=== PATIENT | female | born 1955 | race Hispanic/Latino ===

== ENCOUNTER 2017-10-07 16:09 | Outpatient (CLI) | payer OTHER | END 2017-10-07 16:10 | disposition home or self-care (01) | LOC: BICRAD 16:09 | PROVIDERS: ATTEND Physician Assistant | DX: M54.5 Low back pain (principal); M47.896 Other spondylosis, lumbar region | CPT/HCPCS: 72100 ==

== ENCOUNTER 2017-11-10 12:49 | Outpatient (CLI) | payer OTHER | END 2017-11-10 12:50 | disposition home or self-care (01) | LOC: BICMAMMO 12:49 | PROVIDERS: ATTEND Physician Assistant | DX: Z12.31 Encounter for screening mammogram for malignant neoplasm of breast (principal); R92.1 Mammographic calcification found on diagnostic imaging of breast | CPT/HCPCS: 77063; 77067 ==

== ENCOUNTER 2019-07-20 09:46 | Outpatient (CLI) | payer MEDICARE ==
--- NOTE | 2019-07-20 10:24 | MMO ---
Bilateral MAMMO Bilat Screen [facility]. CLINICAL HISTORY: Patient is 64 years old and is seen for screening. The patient has no family history of breast cancer. The patient has no personal history of cancer. VIEWS: The views performed were: bilateral craniocaudal with tomosynthesis and bilateral mediolateral oblique with tomosynthesis. FILMS COMPARED: The present examination has been compared to prior imaging studies performed at [facility] on 03/08/2012, 03/30/2012, 03/15/2016 and 11/10/2017. This study has been interpreted with the assistance of computer-aided detection. MAMMOGRAM FINDINGS: There are scattered fibroglandular densities. There are stable benign appearing calcifications seen in both breasts. There are also vascular calcifications. There are no suspicious masses, suspicious calcifications, or new areas of architectural distortion. IMPRESSION: THERE IS NO MAMMOGRAPHIC EVIDENCE OF MALIGNANCY. A ROUTINE FOLLOW-UP MAMMOGRAM IN 1 YEAR IS RECOMMENDED. THE RESULTS OF THIS EXAM WERE SENT TO THE PATIENT. ACR BI-RADS Category 2 - Benign finding MAMMOGRAPHY NOTE: 1. A negative mammogram report should not delay a biopsy if a dominant of clinically suspicious mass is present. 2. Approximately 10% to 15% of breast cancers are not detected by mammography. 3. Adenosis and dense breasts may obscure an underlying neoplasm. Reported by: JOHN OQUENDO MD Electonically Signed: [id number]
== END 2019-07-20 09:47 | disposition home or self-care (01) ==
LOC: BICMAMMO 09:46
PROVIDERS: ATTEND Physician Assistant
DX: Z12.31 Encounter for screening mammogram for malignant neoplasm of breast (principal)
CPT/HCPCS: 77063; 77067

== ENCOUNTER 2020-01-11 07:48 | Outpatient (CLI) | payer MEDICARE ==
--- NOTE | 2020-01-11 09:19 | CT ---
CT Abdomen Pelvis W Con: 01/11/2020 12:00 AM CLINICAL INFORMATION: Left upper quadrant abdominal pain COMPARISON: None. TECHNIQUE: Multiple contiguous axial images were obtained and a CT of the abdomen and pelvis with IV contrast. Oral contrast was administered. Coronal and sagittal reformats were performed. FINDINGS: Lower Chest: Calcified granuloma in the right middle lobe. Abdomen: Liver: within normal limits. Bile Ducts: Normal caliber. Gallbladder: No calcified gallstones. Normal caliber wall. Pancreas: within normal limits. Spleen: within normal limits. Adrenals: within normal limits. 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 There is a 1.5 cm cyst in the right kidney. Pelvis: Reproductive Organs: Status post hysterectomy. Ureters: within normal limits. Bladder: within normal limits. Peritoneum: No ascites or free air, no fluid collection. Bowel: Normal caliber. Normal appendix. Mesentery and Retroperitoneum: No enlarged mesenteric or retroperitoneal lymph nodes. Vessels: Normal. Abdominal Wall: within normal limits. Bones: Degenerative changes in the spine. IMPRESSION: 1. No evidence of acute intraabdominal or pelvic abnormality. 2. Right renal cyst
[2020-01-11] MEDS ORDERED: Iopamidol-370 76% 500 ML 1 ML ONE (11:58)
== END 2020-01-11 07:49 | disposition home or self-care (01) ==
LOC: BICCT 07:48
PROVIDERS: ATTEND Physician Assistant Medical
DX: R10.12 Left upper quadrant pain (principal); N28.1 Cyst of kidney, acquired
CPT/HCPCS: 74177; Q9967

== ENCOUNTER 2020-11-11 09:02 | Outpatient (CLI) | payer MEDICARE | END 2020-11-11 09:03 | disposition home or self-care (01) | LOC: TBSIIMAG 09:02 | PROVIDERS: ATTEND Neurological Surgery | DX: M51.16 Intervertebral disc disorders with radiculopathy, lumbar region (principal); M47.12 Other spondylosis with myelopathy, cervical region; M47.26 Other spondylosis with radiculopathy, lumbar region; M48.05 Spinal stenosis, thoracolumbar region; M50.00 Cervical disc disorder with myelopathy, unspecified cervical region; M48.02 Spinal stenosis, cervical region; M48.03 Spinal stenosis, cervicothoracic region; R18.8 Other ascites | CPT/HCPCS: 72141; 72148 ==

== ENCOUNTER 2021-06-04 07:35 | Outpatient (CLI) | payer MEDICARE | END 2021-06-04 07:36 | disposition home or self-care (01) | LOC: ULT 07:35 | PROVIDERS: ATTEND Family Medicine | DX: R10.9 Unspecified abdominal pain (principal); K76.0 Fatty (change of) liver, not elsewhere classified; N28.1 Cyst of kidney, acquired | CPT/HCPCS: 76700 ==

== ENCOUNTER 2021-07-15 19:05 | Emergency (ER) | payer MEDICARE, OTHER ==
[2021-07-15 20:07] LABS: #Eosinphils 0.2 thou/uL (0.0-0.7); #Lymphocytes 3.1 thou/uL (1.20-3.40); #Monocytes 0.7 thou/uL (0.11-0.59); #Neutrophils 4.6 thou/uL (1.40-6.50); %Basophils 0.3 % (0.0-1.0); %Eosinophils 2.6 % (0.0-10.0); %Monocytes 8.4 % (0.0-10.0); %Neutrophils 52.6 % (42.0-75.0); Hemoglobin 13.7 g/dL (12.0-16.0); Mean Corpuscular HGB CONC 34.2 g/dL (32.0-36.0); Mean Corpuscular Hemoglobin 31.1 pg (27.0-31.0); Mean Corpuscular Volume 90.8 fL (78.0-98.0); Platelet Count 219 thou/uL (130-400); RBC Distribution Width 12.6 % (11.5-14.5); Red Blood Cell (RBC) Count 4.42 mill/uL (4.20-5.40); White Blood Cell (WBC) Count 8.7 thou/uL (4.8-10.8)
[2021-07-15 20:33] LABS: ALT (SGPT) 19 U/L (8-55); AST (SGOT) 19 U/L (5-34); Albumin 4.3 g/dL (3.4-4.8); Alkaline Phosphatase 76 U/L (40-110); Anion Gap 16 mmol/L (10-20); BUN (Urea Nitrogen) 14 mg/dL (9.8-20.1); Bilirubin, Total 0.3 mg/dL (0.2-1.2); Calc. Creatinine Clearance 0 mL/min (70-130); Calcium 10.1 mg/dL (7.8-10.44); Carbon Dioxide 22 mmol/L (23-31); Chloride 107 mmol/L (98-107); Globulin 3.8 g/dL (2.4-3.5); Glucose 104 mg/dL (80-115); Lipase 71 U/L (8-78); Potassium 3.9 mmol/L (3.5-5.1); Protein, Total 8.1 g/dL (5.8-8.1); Sodium 141 mmol/L (136-145)
== END 2021-07-15 22:09 | disposition home or self-care (01) ==
LOC: ERS 19:05
DX: I10 Essential (primary) hypertension (principal)
CPT/HCPCS: 36415; 70450; 71045; 80053; 83690; 84484; 85025; 93005

== ENCOUNTER 2021-07-22 08:33 | Outpatient (CLI) | payer MEDICARE | END 2021-07-22 08:34 | disposition home or self-care (01) | LOC: NM 08:33 | PROVIDERS: ATTEND Family Medicine | DX: R10.9 Unspecified abdominal pain (principal) | CPT/HCPCS: 78227; A9537; A9500 ==

== ENCOUNTER 2025-02-15 09:21 | Outpatient (CLI) | payer OTHER | END 2025-02-15 09:22 | disposition home or self-care (01) | LOC: MRI 09:21 | DX: M79.89 Other specified soft tissue disorders (principal); R29.898 Other symptoms and signs involving the musculoskeletal system; M75.112 Incomplete rotator cuff tear or rupture of left shoulder, not specified as traumatic; M62.512 Muscle wasting and atrophy, not elsewhere classified, left shoulder; R93.7 Abnormal findings on diagnostic imaging of other parts of musculoskeletal system ==

== ENCOUNTER 2025-04-25 07:15 | Outpatient (CLI) | payer OTHER ==
[2025-04-25 09:14] LABS: Estimated GFR - POC 68.0
== END 2025-04-25 07:16 | disposition home or self-care (01) ==
LOC: CT 07:15
PROVIDERS: ATTEND Physician Assistant Medical
DX: K21.9 Gastro-esophageal reflux disease without esophagitis (principal); R19.4 Change in bowel habit; K11.7 Disturbances of salivary secretion; R13.12 Dysphagia, oropharyngeal phase; R10.84 Generalized abdominal pain; J84.10 Pulmonary fibrosis, unspecified; K57.30 Diverticulosis of large intestine without perforation or abscess without bleeding; I70.0 Atherosclerosis of aorta; M46.1 Sacroiliitis, not elsewhere classified; M47.818 Spondylosis without myelopathy or radiculopathy, sacral and sacrococcygeal region; Z90.710 Acquired absence of both cervix and uterus; M53.3 Sacrococcygeal disorders, not elsewhere classified
CPT/HCPCS: 36415; 74177; 82565